=== PATIENT | female | born 1975 | race Caucasian/White ===

== ENCOUNTER 2022-12-04 16:38 | Inpatient (IN) | payer SELFPAY ==
[2022-12-04 16:50] VITALS: BP 230/132; PULSE 87; RESP 16; TEMP 36.8; O2SAT 98
--- NOTE | 2022-12-04 18:20 | EDS_ITS ---
HPI History of Present Illness Chief Complaint: Lower Extremity Injury Narrative Narrative: Patient presents with right lower extremity edema redness for about a week its progressively worse. No prior DVT. No DVT or PE risk factors. No fevers. She denies any injury. [facility] History no medical history Allergy/AdvReac Type Severity Reaction Status Date / Time ketorolac [From Toradol] Allergy Mild PT UNSURE Verified 12/04/22 16:57 OF REACTION tramadol Allergy Mild PT UNSURE Verified 12/04/22 16:57 OF REACTION Family History no significant family his Surgical History no surgical history Social History Smoking Status: Heavy Smoker (>10/day) ROS ROS ED ROS Narrative Past medical history: She has no medical problems but she also does not see a doctor. Medications: Reviewed Social history: Noncontributory Review of systems: All systems negative except as indicated General: No fever Eyes: No visual changes ENT: No upper airway congestion, normal voice Neck: No neck pain Cardiovascular: No chest pain Respiratory: No shortness of breath or cough Gastrointestinal: No abdominal pain, nausea vomiting or diarrhea Genitourinary: No dysuria Musculoskeletal: Lower extremity edema and redness as in HPI Skin: No other rash Neurological: No memory loss, confusion or any focal weakness Psych: No recent behavioral changes EXAM Physical Exam Narrative Exam Narrative: Physical exam General: Appears somewhat uncomfortable Head: Normocephalic, Atraumatic Eyes: Conjunctiva not pale ENT: Moist mucous membranes Neck: Supple, Nontender, No lymphadenopathy Cardiovascular: Regular rate, Regular rhythm Respiratory: No distress, CTA bilaterally Abdomen: Soft, Nontender, Nondistended Back: Nontender, Normal Inspection. Negative for: CVA tenderness Extremities: Lower extremity edema, there is erythema and calor past the knee into her distal thigh region. Skin: Normal color, No rash Neurological: Alert, Normal Strength, Normal Sensation Psychological: Normal affect Const Vital Signs: 12/04/22 16:50 12/04/22 18:22 Temperature 98.3 F Temperature Source Temporal Pulse Rate 87 Respiratory Rate 16 Blood Pressure 230/132 H 198/108 H Blood Pressure Mean 164 138 Pulse Ox 98 Oxygen Delivery Method Room Air MDM MDM MDM Narrative Medical decision making narrative: Patient has right lower extremity cellulitis with leukocytosis. I cannot rule out a DVT at this time since I do not have ultrasound available at this hour. Therefore I gave her Lovenox. Because I am admitting her for cellulitis and leukocytosis and then giving her Lovenox I do not believe a D-dimer is needed. She had no injury I do not believe an x-ray of the leg is needed. There is no signs or symptoms of necrotizing fasciitis. She had initially hypertension which somewhat improved with analgesics. This will have to also be evaluated in patient. Lab Data Labs: Laboratory Results - last 24 hr 12/04/22 18:37 WBC 14.9 H RBC 4.68 Hgb 14.2 Hct 44.8 MCV 95.7 MCH 30.3 MCHC 31.7 L RDW Std Deviation 44.9 H RDW Coeff of Efrain 12.8 Plt Count 260 MPV 10.7 Immature Gran % (Auto) 0.400 Neut % (Auto) 75.2 H Lymph % (Auto) 16.0 L [place] % (Auto) 7.5 Eos % (Auto) 0.4 Baso % (Auto) 0.5 Absolute Neuts (auto) 11.2 H Absolute Lymphs (auto) 2.38 Nucleated RBC % 0 Sodium 140 Potassium 3.4 L Chloride 107 Carbon Dioxide 29.0 Anion Gap 4 L BUN 13 Creatinine 0.89 Est GFR (MDRD) Af Amer 87 Est GFR (MDRD) Non-Af 72 BUN/Creatinine Ratio 14.7 Glucose 104 Calcium 9.3 Total Bilirubin 0.60 AST 16 ALT 36 Alkaline Phosphatase 94 Total Protein 8.0 Albumin 3.8 Globulin 4.2 Albumin/Globulin Ratio 0.9 Discharge Plan Triage Chief Complaint: Lower Extremity Injury ED Provider: Zeeshan Castro Dx/Rx/DC Orders Clinical Impression: Acute leg pain, Cellulitis, Hypertension Primary Care Provider: [facility] Doctor,Out of Referrals: [facility] Doctor,Out of [Primary Care Provider] - Disposition Disposition: [facility]
[2022-12-04 18:22] VITALS: BP 198/108
[2022-12-04] MEDS: Morphine 4 MG/ML Syringe IV (18:35)
[2022-12-04] MEDS: Ondansetron 4 MG/2 ML Vial IV (18:35)
[2022-12-04 18:42] LABS: Absolute Lymphocyte Count 2.38 X10^3/uL (0.83-4.51); Absolute Neutrophil Count 11.2 X10^3/uL (2.0-7.7); Basophil# 0.07 X10^3/uL; Basophil% 0.5 % (0-1); Eosinophil# 0.06 X10^3/uL; Eosinophils% 0.4 % (0-5); Hematocrit 44.8 % (37-47); Hemoglobin 14.2 g/dL (12.0-15.0); Lymphocyte # 2.38 X10^3/ul (0.83-4.51); Mean Corp Hgb Conc 31.7 g/dL (32-36); Mean Corpuscular Hgb 30.3 pg (27.0-32.0); Mean Corpuscular Volume 95.7 fL (81-99); Mean Platelet Vol. 10.7 fl (6.2-12.0); Monocyte# 1.12 X10^3/uL; Monocyte% 7.5 % (0-10); NRBC Flagged by Analyzer 0 % (0-5); Neutrophil # 11.23 X10^3/uL (2.7-7.7); Neutrophil % 75.2 % (47-70); Platelet Count 260 K/mm3 (150-450); RBC Distribution Width CV 12.8 % (11.6-14.6); RBC Distribution Width SD 44.9 fl (35.1-43.9); Red Blood Count 4.68 M/mm3 (4.2-5.4); White Blood Count 14.9 K/mm3 (4.4-11.0)
[2022-12-04] MEDS: Clindamycin 600 MG/50 ML BAG 100 MG IV (19:02)
[2022-12-04 19:03] LABS: ALB/GLOB Ratio 0.9 RATIO (0.9-2.4); AST(SGOT) 16 U/L (15-37); Alanine Aminotransfer ALT/SGPT 36 U/L (13-56); Albumin, Serum 3.8 g/dL (3.2-5.0); Alkaline Phosphatase 94 U/L (45-117); Anion Gap 4 (5-15); BUN 13 mg/dL (7-18); BUN/Creat Ratio 14.7 RATIO (10-20); Calcium,Total 9.3 mg/dL (8.5-10.1); Chloride 107 mmol/L (98-107); Creatinine, Serum 0.89 mg/dL (0.55-1.02); EST Glomerular Filtration Rate 72 mL/min (>60); Est Glom Filt Rate - Afr Amer 87 mL/min (>60); Globulin 4.2 g/dL (2.2-4.2); Glucose 104 mg/dL (74-106); Potassium 3.4 mmol/L (3.5-5.1); Sodium Level 140 mmol/L (136-145)
[2022-12-04] MEDS: HYDROmorphone 0.5 MG/0.5 ML SYRINGE IV (19:19)
[2022-12-04 19:26] VITALS: BMI 30.7
[2022-12-04 19:32] VITALS: BP 159/103; PULSE 85; RESP 15; TEMP 37.3; O2SAT 97
--- NOTE | 2022-12-04 19:52 | VDLE_ITS ---
Reason For Study: RLE PAIN RIGHT GSV is normal. CFV is compressible, spontaneous, phasic, competent and demonstrates normal augmentation. FV is compressible, spontaneous, phasic, competent and demonstrates normal augmentation. PTV is compressible. RT PerV is compressible. Unable to ASSESS POP V OR T/P TRUNK despite many efforts due to swelling and pain. Procedure This is a venous duplex using B-mode, color flow and spectral Doppler. Exam performed portable in patient room. The study was technically difficult. A preliminary report was called and/or faxed to [facility]. DR. Mcneil was notified of study. VL/Venous Duplex US - Kee Extrem Interpretation Summary The right common femoral vein, femoral vein, posterior tibial vein, and peronea l vein are patent and compressible, with no evidence of deep vein thrombosis. The right common femora l vein and femoral vein are competent. The right great saphenous vein appears patent and compressi ble segmentally. The right popliteal vein and tibio-peroneal trunk could not be visualized due to sw elling and pain inhibition. Clinical correlation is advised. Recommend an alternative imaging m odality if clinically warranted. Ordering Physician: Nadege Louis Referring Physician: OTD Performed By: Karis Mistry, PHIL, RVT
--- NOTE | 2022-12-04 19:55 | PCM.HP.STD ---
HPI - General General Date of Admission: 12/04/22 Date of Service: 12/04/22 HPI Narrative KATIE SEQUEIRA, is a 47 F with a PMH as outlined who presents via the ED with a complaint of RLE pain and swelling for about a week. She works for the [employer] and [place] [facility] [place] [facility]. HEr most recent travel was for about 4 hours. She started having some cramping of her right calf a week ago. She thought maybe she had pulled a muscle, but the symptoms persisted and he started having extensive swelling of her right lower extremity. Swelling extended to up above the knee to the mid thigh region. She notices that her leg was also very tense and very painful so she came into the ED. She denied any chest pain though she says she also was short of breath because she smoked and had not noticed any worsening of it. She never had any blood clot in her leg or her lungs. Review of systems otherwise negative. Vitals in the ED were BP of 198/108 with temperature of 98.3 Fahrenheit and respirate rate of 16. Showed saturating 98% on room air. CBC showed WBC of 14.9 with hemoglobin of 14.2 and platelets of 260. Chemistry was significant for potassium of 3.4. Duplex could not be done in the ED this evening. She has been admitted to be managed for presumptive DVT of the right lower extremity as well as markedly elevated BP, likely potentiated by pain. [facility] Medical History no medical history Home Medications NK 12/04/22 [History Last Taken Unknown] Allergy/AdvReac Type Severity Reaction Status Date / Time ketorolac [From Toradol] Allergy Mild PT UNSURE Verified 12/04/22 16:57 OF REACTION tramadol Allergy Mild PT UNSURE Verified 12/04/22 16:57 OF REACTION Family History no significant family his Surgical History no surgical history Social History Smoking Status: Heavy Smoker (>10/day) ROS Constitutional Constitutional: Denies anorexia, change in weight, chills, fatigue, fever(s), malaise or weakness Eyes Eyes: Denies change in vision ENT HEENT: Denies dysphagia, headache(s), sore throat or throat swelling Cardiovascular Cardiovascular: Denies chest pain, edema, orthopnea, palpitations, paroxysmal nocturnal dyspnea or syncope Respiratory/Chest Respiratory/Chest: Reports shortness of breath at rest, shortness of breath with exertion and wheezing; Denies cough Gastrointestinal Gastrointestinal: Denies abdominal pain, constipation, melena or vomiting Genitourinary Genitourinary: Denies dysuria Musculoskeletal Musculoskeletal: Reports extremity pain and limited range of motion; Denies back pain, joint stiffness, joint swelling, muscle weakness or neck pain Neurologic Neurologic: Denies confusion, dizziness, focal weakness, headache(s), numbness or seizures Psychiatric Psychiatric: Denies anxiety or depression Hematologic/Lymphatic Hematologic/Lymphatic: Denies anemia Vital Signs Vital Signs Vital Signs: 12/04/22 16:50 12/04/22 18:22 Temperature 98.3 F Temperature Source Temporal Pulse Rate 87 Respiratory Rate 16 Blood Pressure 230/132 H 198/108 H Blood Pressure Mean 164 138 Pulse Ox 98 Oxygen Delivery Method Room Air Weight Weight: 195 lb 12.328 oz Body Mass Index (BMI) 30.7 Physical Exam Const alert and oriented x3 Constitutional Narrative: in moderate distress due to pain General Appearance: cooperative and well developed HEENT normocephalic, head/scalp atraumatic, moist oral mucous membranes and oropharynx normal Eyes PERRL and EOMs intact bilaterally Neck no lymphadenopathy, supple and no JVD Lymph Lymphatic: no lymphadenopathy noted and no lymphedema noted Resp normal respiratory effort, normal air movement and clear to auscultation bilaterally Cardio regular rate, regular rhythm, S1 normal heart sound, S2 normal heart sound and no murmurs GI normal to inspection, nondistended, normoactive bowel sounds, soft to palpation, non-tender and non-distended Extremity normal capillary refill Extremity Narrative: RLE markedly swollen from foot to mid thigh; RLE swelling is tense, and severely tender to touch. Mild erythema. No differential warmth. DP and PT pulse on RLE is strong and palpable Skin Skin Narrative: as under extremity Neuro CN's II-XII intact bilaterally, no focal motor deficits, no sensory deficits noted and deep tendon reflexes 2+ bilaterally Psych thought process normal, cooperative and affect normal Appearance: appropriate Results Lab / Micro Data 12/04/22 18:37 12/04/22 18:37 Labs: Laboratory Results - last 24 hr 12/04/22 18:37: WBC 14.9 H, RBC 4.68, Hgb 14.2, Hct 44.8, MCV 95.7, MCH 30.3, MCHC 31.7 L, RDW Std Deviation 44.9 H, RDW Coeff of Efrain 12.8, Plt Count 260, MPV 10.7, Immature Gran % (Auto) 0.400, Neut % (Auto) 75.2 H, Lymph % (Auto) 16.0 L, [place] % (Auto) 7.5, Eos % (Auto) 0.4, Baso % (Auto) 0.5, Absolute Neuts (auto) 11.2 H, Absolute Lymphs (auto) 2.38, Nucleated RBC % 0, Sodium 140, Potassium 3.4 L, Chloride 107, Carbon Dioxide 29.0, Anion Gap 4 L, BUN 13, Creatinine 0.89, Est GFR (MDRD) Af Amer 87, Est GFR (MDRD) Non-Af 72, BUN/Creatinine Ratio 14.7, Glucose 104, Calcium 9.3, Total Bilirubin 0.60, AST 16, ALT 36, Alkaline Phosphatase 94, Total Protein 8.0, Albumin 3.8, Globulin 4.2, Albumin/Globulin Ratio 0.9 Assessment & Plan Assessment/Plan (1) Acute leg pain: (2) DVT (deep venous thrombosis): PLAN: Plan #PResumptive DVT of RLE Index of suspicion is very high for DVT of the right lower extremity as patient has a history of traveling from [facility] [place] [facility] to attend fairs. Her most recent travel was about 4 hours. Cannot get duplex of the right lower extremity at this time in the ED. We will start treatment for presumptive DVT with subcu Lovenox 90 mg twice daily. To get duplex of the RLE tomorrow to confirm DVT PT/OT consulted. PO Tylenol, IV dilaudid and PO oxycodone prn for pain #Elevated blood pressure Not a known hypertensive. Blood pressure was markedly elevated in the 230s systolic when she came in and was down to 198/108 at time I saw her. This is likely aggravated by pain. Will place on IV hydralazine as needed. I believe that once her pain is improved her blood pressure will improve. If she still remains hypertensive then we will consider starting oral BP meds. #Nicotine dependence: Smokes at least 1 to 1.5 packs daily. Counseled to quit. Nicotine patch 21 mg daily. DVT prophylaxis: Already being treated for presumptive DVT. CODE STATUS: Full code Patient counseled extensively about different types of CODE STATUS including full code, DNR CCA and DNR CCA. Patient elects to be full code; she says she is not ready to as she has to care for her father who is elderly. Total [id number] time 16 minutes. Charges/Coding Visit Charges Inpatient E&M: 35611 Init Hosp L3 Procedures Hospitalists Procedures: 74305 Advncd Care Plan 30 Min
--- NOTE | 2022-12-04 20:04 | ED.RN ---
BP 159/103. DR CHO MADE AWARE. NO NEW ORDERS RCVD AT THIS TIME BP HAS IMPROVED SINCE ARRIVAL
[2022-12-04] MEDS: Enoxaparin 120 MG/0.8 ML Syringe SC (20:14)
[2022-12-04 20:41] VITALS: BMI 29.8
[2022-12-04] MEDS: 0.9% Normal Saline (1000mL) 1,000 ML 100 ML IV (20:52)
[2022-12-04] MEDS: Acetaminophen 325 MG Tablet 650 MG PO (21:06)
[2022-12-04] MEDS: oxyCODONE 5 MG Tablet PO (21:07)
[2022-12-04 21:08] VITALS: BP 160/105; PULSE 76; RESP 16; TEMP 36.4; O2SAT 92
[2022-12-04] MEDS: HYDROmorphone 1 MG/ML Syringe IV (22:24)
[2022-12-05] MEDS: Ondansetron 4 MG/2 ML Vial IV ×2 (01:41→12:38)
[2022-12-05] MEDS: HYDROmorphone 1 MG/ML Syringe IV ×5 (03:01→22:26)
[2022-12-05 03:06] VITALS: BP 150/62; PULSE 62; RESP 17; TEMP 36.7; O2SAT 98
[2022-12-05] MEDS: oxyCODONE 5 MG Tablet PO ×2 (05:24→15:28)
[2022-12-05] MEDS: Acetaminophen 325 MG Tablet 650 MG PO ×2 (05:24→15:27)
--- NOTE | 2022-12-05 07:25 | PN.HOSP_ITS ---
Objective Data Objective Data Vital Signs: Vital Signs Temp Pulse Resp BP Pulse Ox O2 Del Method 98.1 F 62 17 150/62 H 98 Room Air 12/05/22 03:06 12/05/22 03:06 12/05/22 03:06 12/05/22 03:06 12/05/22 03:06 12/05/22 03:06 Oxygen Delivery Method Room Air Weight: 190 lb 11.198 oz Body Mass Index (BMI) 29.8 Intake & Output: Intake and Output for Last 24 Hours 12/03/22 12/04/22 12/05/22 23:59 23:59 23:59 Intake Total 50 / 50 2440 / 2440 Balance 50 / 50 2440 / 2440 Lab / Micro Data 12/05/22 08:05 12/05/22 05:27 Labs: Laboratory Results - last 24 hr 12/04/22 18:37: WBC 14.9 H, RBC 4.68, Hgb 14.2, Hct 44.8, MCV 95.7, MCH 30.3, MCHC 31.7 L, RDW Std Deviation 44.9 H, RDW Coeff of Efrain 12.8, Plt Count 260, MPV 10.7, Immature Gran % (Auto) 0.400, Neut % (Auto) 75.2 H, Lymph % (Auto) 16.0 L, [place] % (Auto) 7.5, Eos % (Auto) 0.4, Baso % (Auto) 0.5, Absolute Neuts (auto) 11.2 H, Absolute Lymphs (auto) 2.38, Nucleated RBC % 0, Sodium 140, Potassium 3.4 L, Chloride 107, Carbon Dioxide 29.0, Anion Gap 4 L, BUN 13, Creatinine 0.89, Est GFR (MDRD) Af Amer 87, Est GFR (MDRD) Non-Af 72, BUN/Creatinine Ratio 14.7, Glucose 104, Calcium 9.3, Total Bilirubin 0.60, AST 16, ALT 36, Alkaline Phosphatase 94, Total Protein 8.0, Albumin 3.8, Globulin 4.2, Albumin/Globulin Ratio 0.9 Physical Exam Narrative Patient is states that she frequently travels [address] is about more than 5 hours. Right lower extremity is very swollen and tender. No fever. Physical exam General: Alert, Oriented x3, Cooperative HEENT: Atraumatic, PERRLA, EOMI, Normocephalic Oral: Oral mucosa moist. No Gingival or Mucosal Lesions/ Ulcerations Neck: Supple, No JVD, Negative Carotid Bruits Lungs: Air entry diminished in bilateral lung bases. No crepitation/rhonchi Cardiovascular: Regular rate, Regular Rhythm, Normal S1, Normal S2, No murmurs Abdomen: Bowel Sounds Present, Soft, Non Tender, Non-Distended : No renal angle tenderness. No suprapubic tenderness. Extremities: RLE markedly swollen from mid thigh to foot with pedal edema. Tender tense mild mentals. PT and DPA of RLE are palpable. Nail capillary Refill Less than 3 Seconds Skin: Mild erythema in right lower leg. Does not seem cellulitis. Musculoskeletal: No Tenderness to Palpation of Joints or Extremities Neurological: Cranial nerves II-XII grossly intact, DTR 2+/4. No acute focal neurological deficit. Psych/Mental Status: Normal Affect, Appropriate. Assessment & Plan Assessment/Plan (1) Acute leg pain: QUALIFIERS: Laterality: right Qualified Code(s): M79.604 - Pain in right leg (2) DVT (deep venous thrombosis): QUALIFIERS: DVT location: lower extremity Chronicity: acute Laterality: right PLAN: Plan 47-year-old female admitted for extensive right lower extremity pain, swelling along with for about 1 week. Symptoms persisted and progressed from knee to mid thigh region. No chest pain or shortness of breath she is also frequent traveling from [facility] to other related to work. #Presumptive DVT of RLE * Index of suspicion is very high for DVT of the right lower extremity as patient has a history of traveling [place] [facility] [place] [facility] to attend fairs. Her most recent travel was about 4 hours. * Cannot get duplex of the right lower extremity at this time in the ED or on Tuesday therefore scheduled for tomorrow.the patient is empirically started on Lovenox 90 mg twice daily for presumptive DVT * PT/OT consulted. * PO Tylenol, IV dilaudid and PO oxycodone prn for pain #Elevated blood pressure * Not a known hypertensive. Blood pressure was markedly elevated in the 230s systolic when she came in and was down to 198/108 * Most recent blood pressure 151/94. * This is likely aggravated by pain. On lisinopril 10 mg daily and hydralazine IV as needed. * #Nicotine dependence: Smokes at least 1 to 1.5 packs daily. Counseled to quit. Nicotine patch 21 mg daily. DVT prophylaxis: Already being treated for presumptive DVT. CODE STATUS: Full code * Patient counseled extensively about different types of CODE STATUS including full code, DNR CCA and DNR CCA. Patient elects to be full code; she says she is not ready to as she has to care for her father who is elderly. Charges/Coding Visit Charges Inpatient E&M: 34243 Subs Hosp L2
[2022-12-05 07:51] LABS: Anion Gap 6 (5-15); BUN 13 mg/dL (7-18); BUN/Creat Ratio 18.6 RATIO (10-20); Calcium,Total 8.5 mg/dL (8.5-10.1); Chloride 106 mmol/L (98-107); EST Glomerular Filtration Rate 95 mL/min (>60); Est Glom Filt Rate - Afr Amer 115 mL/min (>60); Estimated Creatinine Clearance 94.54 ml/min; Glucose 139 mg/dL (74-106); Potassium 4.9 mmol/L (3.5-5.1); Sodium Level 136 mmol/L (136-145)
[2022-12-05 08:18] LABS: Absolute Lymphocyte Count 2.05 X10^3/uL (0.83-4.51); Absolute Neutrophil Count 8.3 X10^3/uL (2.0-7.7); Basophil# 0.06 X10^3/uL; Basophil% 0.5 % (0-1); Eosinophil# 0.03 X10^3/uL; Eosinophils% 0.3 % (0-5); Hematocrit 40.2 % (37-47); Hemoglobin 12.4 g/dL (12.0-15.0); Lymphocyte # 2.05 X10^3/ul (0.83-4.51); Lymphocyte % 17.6 % (19-41); Mean Corp Hgb Conc 30.8 g/dL (32-36); Mean Corpuscular Hgb 30.5 pg (27.0-32.0); Mean Platelet Vol. 11.4 fl (6.2-12.0); Monocyte# 1.16 X10^3/uL; Monocyte% 9.9 % (0-10); NRBC Flagged by Analyzer 0 % (0-5); Neutrophil # 8.33 X10^3/uL (2.7-7.7); Neutrophil % 71.3 % (47-70); Platelet Count 215 K/mm3 (150-450); RBC Distribution Width CV 12.7 % (11.6-14.6); RBC Distribution Width SD 46.2 fl (35.1-43.9); Red Blood Count 4.06 M/mm3 (4.2-5.4); White Blood Count 11.7 K/mm3 (4.4-11.0)
[2022-12-05 08:28] LABS: International Normalized Ratio 1.1; Prothrombin Time (Protime)PT. 14.5 SECONDS (11.7-14.9)
[2022-12-05] MEDS: Enoxaparin 100 MG/ML Syringe 90 MG SC ×2 (08:35→22:21)
[2022-12-05 09:00] VITALS: BP 151/94; PULSE 67; PULSE 80; RESP 18; TEMP 36.7; O2SAT 94
[2022-12-05 14:06] VITALS: PULSE 68
[2022-12-05 14:11] VITALS: BP 149/54; PULSE 68; RESP 18; TEMP 36.7; O2SAT 98
--- NOTE | 2022-12-05 14:20 | NURSING ---
pt had numerous $20 bills folded in half on dinner tray, this nurse handed them to pt as I was giveng her pain meds and asked her if we could lock them in the [facility] safe, she refused to allow staff to lock them up and insisted on placing them in her back pack style bag
[2022-12-05] MEDS: Ibuprofen 600 MG Tablet PO ×2 (15:27→23:55)
--- NOTE | 2022-12-05 18:46 | CT_ITS ---
STUDY: CTA CHEST REASON FOR EXAM: Female, 47 years old. shortness of breath, suspicious of PE TECHNIQUE: The examination was performed with the intravenous administration of 100 cc of IV Isovue 300 contrast material. Post-processing of the angiographic images was performed, with axial imaging and 3D reconstruction. MIPS images were obtained. Individualized dose optimization techniques were used for this CT. COMPARISON: None. FINDINGS: Normal enhancement of the main pulmonary artery and right and left pulmonary arteries. Normal enhancement of the bilateral peripheral pulmonary arteries. There is no demonstrated pulmonary embolism. Retroesophageal] cephalic artery. There is no demonstrated aortic dissection. Normal heart and pericardium with no evidence for calcifications of the coronary arteries. Normal mediastinum. Normal hilar regions. Normal visualized trachea and bronchi. The lungs are well expanded. Normal pulmonary parenchyma. Normal pleura. Normal chest wall structures. There are degenerative changes of thoracic spine. Normal visualized upper abdomen. CT/CTA Chest W/WO Contrast IMPRESSION: (NOT LISTED IN ORDER OF SIGNIFICANCE) No demonstrated pulmonary embolism or arterial dissection. Electronically Signed: Bruce oLpez MD at 20:39 EDT ,
--- NOTE | 2022-12-05 18:56 | CT_ITS ---
EXAM: CT RIGHT LOWER EXTREMITY WITHOUT INTRAVENOUS CONTRAST CLINICAL INDICATION: edema -- rt lower extremity entire extremity TECHNIQUE: Helically acquired images were obtained of the right lower extremity without intravenous contrast. 2-D reformats were performed by the technologist. This CT exam was performed using one or more of the following dose reduction techniques: automated exposure control, adjustment of the mA and/or kV according to patient size, and/or use of iterative reconstruction technique. RADIATION DOSE: CTDIvol = 16.36 mGy, DLP = 1453.06 mGy-cm COMPARISON: No relevant prior studies available. FINDINGS: BONES/JOINTS: Right knee joint effusion. Intramuscular hematoma of the right medial gastrocnemius muscle. The hematoma measures 63 x 40 x 161 mm. No acute fracture. No subluxation. Normal alignment. No sclerotic or destructive changes. SOFT TISSUES: See above. LYMPH NODES: Prominent inguinal lymph nodes. CT/Extremity Lower without Contra IMPRESSION: 1. Right knee joint effusion. Intramuscular hematoma of the right medial gastrocnemius muscle. The hematoma measures 63 x 40 x 161 mm. 2. Prominent inguinal lymph nodes. Electronically Signed: Bruce Lopez MD at 20:36 EDT ,
[2022-12-05] MEDS: 0.9% Saline Lock 10 ML Syringe IV ×2 (19:03→22:27)
[2022-12-05 22:16] VITALS: BP 176/83; PULSE 74; RESP 18; TEMP 36.9; O2SAT 97
[2022-12-05] MEDS: Senna Tablet 2 TABLET PO (22:21)
[2022-12-06 01:52] VITALS: BP 131/74; PULSE 61; RESP 17; TEMP 36.9; O2SAT 94
[2022-12-06] MEDS: Acetaminophen 325 MG Tablet 650 MG PO ×2 (01:55→15:08)
[2022-12-06] MEDS: oxyCODONE 5 MG Tablet PO ×4 (01:56→20:09)
[2022-12-06] MEDS: Ibuprofen 600 MG Tablet PO ×3 (05:58→19:00)
[2022-12-06] MEDS: 0.9% Saline Lock 10 ML Syringe IV (06:50)
[2022-12-06] MEDS: HYDROmorphone 1 MG/ML Syringe IV (06:51)
[2022-12-06 08:06] VITALS: BP 147/89; PULSE 55; RESP 18; TEMP 37.2; O2SAT 95
[2022-12-06 08:31] LABS: Absolute Lymphocyte Count 2.01 X10^3/uL (0.83-4.51); Absolute Neutrophil Count 7.8 X10^3/uL (2.0-7.7); Basophil# 0.05 X10^3/uL; Basophil% 0.5 % (0-1); Eosinophil# 0.16 X10^3/uL; Eosinophils% 1.4 % (0-5); Hematocrit 42.4 % (37-47); Hemoglobin 13.4 g/dL (12.0-15.0); Lymphocyte # 2.01 X10^3/ul (0.83-4.51); Lymphocyte % 18.2 % (19-41); Mean Corp Hgb Conc 31.6 g/dL (32-36); Mean Corpuscular Hgb 30.2 pg (27.0-32.0); Mean Corpuscular Volume 95.7 fL (81-99); Mean Platelet Vol. 11.4 fl (6.2-12.0); NRBC Flagged by Analyzer 0 % (0-5); Neutrophil # 7.81 X10^3/uL (2.7-7.7); Neutrophil % 70.5 % (47-70); Platelet Count 248 K/mm3 (150-450); RBC Distribution Width CV 12.5 % (11.6-14.6); RBC Distribution Width SD 44.2 fl (35.1-43.9); Red Blood Count 4.43 M/mm3 (4.2-5.4); White Blood Count 11.1 K/mm3 (4.4-11.0)
[2022-12-06 09:10] LABS: Anion Gap 1 (5-15); BUN 12 mg/dL (7-18); BUN/Creat Ratio 16.3 RATIO (10-20); Calcium,Total 9.6 mg/dL (8.5-10.1); Chloride 100 mmol/L (98-107); Creatinine, Serum 0.74 mg/dL (0.55-1.02); EST Glomerular Filtration Rate 89 mL/min (>60); Est Glom Filt Rate - Afr Amer 108 mL/min (>60); Estimated Creatinine Clearance 89.43 ml/min; Glucose 131 mg/dL (74-106); Potassium 3.7 mmol/L (3.5-5.1); Sodium Level 137 mmol/L (136-145)
[2022-12-06] MEDS: Senna Tablet 2 TABLET PO (10:12)
--- NOTE | 2022-12-06 10:20 | PCM.PN.HOSP ---
Subjective Subjective No issues overnight, continue with right lower extremity swelling Objective Data Objective Data Vital Signs: Vital Signs Temp Pulse Resp BP Pulse Ox O2 Del Method 98.9 F 55 L 18 147/89 H 95 Room Air 12/06/22 08:06 12/06/22 08:06 12/06/22 08:06 12/06/22 08:06 12/06/22 08:06 12/06/22 08:11 Oxygen Delivery Method Room Air Weight: 190 lb 11.198 oz Body Mass Index (BMI) 29.8 Intake & Output: Intake and Output for Last 24 Hours 12/05/22 12/06/22 12/07/22 03:59 03:59 03:59 Intake Total 490 / 490 2500 / 2500 Output Total 200 / 200 Balance 490 / 490 2300 / 2300 Lab / Micro Data 12/06/22 08:05 12/06/22 08:05 Labs: Laboratory Results - last 24 hr 12/06/22 08:05: WBC 11.1 H, RBC 4.43, Hgb 13.4, Hct 42.4, MCV 95.7, MCH 30.2, MCHC 31.6 L, RDW Std Deviation 44.2 H, RDW Coeff of Efrain 12.5, Plt Count 248, MPV 11.4, Immature Gran % (Auto) 0.400, Neut % (Auto) 70.5 H, Lymph % (Auto) 18.2 L, [place] % (Auto) 9.0, Eos % (Auto) 1.4, Baso % (Auto) 0.5, Absolute Neuts (auto) 7.8 H, Absolute Lymphs (auto) 2.01, Nucleated RBC % 0, Sodium 137, Potassium 3.7, Chloride 100, Carbon Dioxide 36.0 H, Anion Gap 1 L, BUN 12, Creatinine 0.74, Estim Creat Clear Calc 89.43, Est GFR (MDRD) Af Amer 108, Est GFR (MDRD) Non-Af 89, BUN/Creatinine Ratio 16.3, Glucose 131 H, Calcium 9.6 Radiography Diagnostic Testing: Radiology Impression Chest CTA 12/05/22 18:46 IMPRESSION: (NOT LISTED IN ORDER OF SIGNIFICANCE) No demonstrated pulmonary embolism or arterial dissection. Electronically Signed: Bruce Lopez MD at 20:39 EDT , Lower Extremity CT 12/05/22 18:56 IMPRESSION: 1. Right knee joint effusion. Intramuscular hematoma of the right medial gastrocnemius muscle. The hematoma measures 63 x 40 x 161 mm. 2. Prominent inguinal lymph nodes. Electronically Signed: Bruce Lopez MD at 20:36 EDT , Physical Exam Narrative General: Alert, Oriented x3, Cooperative, No apparent distress HEENT: Atraumatic, PERRLA, EOMI, Normocephalic Oral: Moist Mucosa Neck: Supple, No JVD Lungs: Diminished, Normal air movement, No rhonchi, No wheeze, No rales Cardiovascular: Regular rate, Regular Rhythm, Normal S1, Normal S2, No murmurs Abdomen: Soft, Non Tender, Non-Distended, No Hepato-splenomegaly Extremities: Right lower extremity edema, sensation intact she does have limited dorsiflexion of the ankle due to pain but she was resting comfortably with her eyes closed when I came in, Capillary Refill Less than 3 Seconds Skin: No rashes, No breakdown Musculoskeletal: No Tenderness to Palpation of Joints or Extremities Neurological: Cranial nerves II-XII grossly intact, Motor Exam 5/5 strength throughout, Sensory exam intact to light touch and pain Psych/Mental Status: Normal Affect, Appropriate Assessment & Plan Assessment/Plan (1) Acute leg pain: QUALIFIERS: Laterality: right Qualified Code(s): M79.604 - Pain in right leg (2) DVT (deep venous thrombosis): QUALIFIERS: DVT location: lower extremity Chronicity: acute Laterality: right PLAN: Plan 1. Right lower extremity gastrocnemius hematoma ? She states that she does fall on occasion at work but does not recall any significant direct trauma to the leg ? She was on therapeutic Lovenox however this has been discontinued as the CT scan was read as a hematoma ? Venous duplex was negative for DVT ? We will consult radiology for possible drainage if not we will have to monitor for progression to compartment syndrome 2. HTN ? When she came in systolics were in the 190s and she was started on lisinopril, she travels 12 months out of the year so she does not have a PCP so she does not have any medical history ? We will continue to monitor and make adjustments as necessary 3. Nicotine dependence: Smokes at least 1 to 1.5 packs daily. Counseled to quit. Nicotine patch 21 mg daily. DVT: Ambulation Charges/Coding Visit Charges Inpatient E&M: 14996 Subs Hosp L2
--- NOTE | 2022-12-06 13:20 | CASEMGMT ---
AFRICA PROCTOR Assessment: Face to Face with pt for initial transition planning/care coordination assessment. AFRICA PROCTOR introduced self and role at [facility], pt voices understanding and consents to assessment. Pt is A/O x4 and answers all questions appropriately at this time. Pt lying in bed in no distress. Care providers, pharmacy, and demographics verified/updated. Admitting Dx: cellulitis PCP:Pt denies Specialists:Pt denies Preferred Pharmacy:[facility] Retail Insurance: Self Pay Prescription Benefit: no LNOK: Joe Barrios, emergency contact only. Pt states do not call him unless I am dying in the hospital. Living Arrangements: Pt would not answer who she stays with. She states that is personal. She states she stays in motels at all times. She denies any concerns with this and states she is able to manage ADL's independently. Transportation: Pt drives self and denies concerns with transportation. DME/HHC/SNF: Pt has a w/c, denies hx of HHC of SNF stays. Pt states no concerns with going home at time of dc. She states she would have one person who could assist her if she had wound care. She states she will be in this area until Tuesday morning. 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 Pt states that if she needs to have an I&D to her leg, she needs to be put under as she has extreme anxiety. Updated pt nurse of this. Pt states no further concerns/needs. CM to follow. Advised pt to ask CM if any further question/concerns/needs arise, voices understanding. Pt Goal: Home Plan: Home, will follow for wound care needs
--- NOTE | 2022-12-06 15:01 | CASEMGMT ---
Social Work SW attempted to meet with pt to discuss self pay status. Pt painful and unable to talk with SW. Nursing updated. Per RNCM [place]. Pt is not eligible for community resources as she does not lives locally and will be leaving the area on Tuesday. Pt may qualify for the hospital medication assistance program upon discharge if needed. TAHIR Marks
[2022-12-06 16:33] VITALS: BP 159/100; PULSE 58; RESP 18; TEMP 36.2; O2SAT 95
--- NOTE | 2022-12-06 18:59 | NURSING ---
PT WAS NOTIFIED OF ALL THE REST RESULTS AND PLAN OF CARE. SHE IS ON THE PHONE WITH FAMILY MEMBERS AND STATING SHE DOES NOT KNOW WHAT IS GOING ON. SHE HAS HAD FAMILY MEMBERS CALLING IN FACILITY AND ASKING THE SAME QUESTIONS STATING THEY DO NOT KNOW WHAT IS GOING ON WITH HER.CHARGE NURSE INTO SEE PT.
[2022-12-06 23:45] VITALS: BP 158/86; PULSE 65; RESP 16; TEMP 36.8; O2SAT 95
[2022-12-07] MEDS: oxyCODONE 5 MG Tablet PO ×4 (00:12→21:56)
[2022-12-07] MEDS: Ibuprofen 600 MG Tablet PO ×4 (00:12→21:57)
[2022-12-07 06:30] VITALS: BP 155/90; PULSE 61; RESP 16; TEMP 36.9; O2SAT 95
[2022-12-07 06:49] LABS: Absolute Lymphocyte Count 2.48 X10^3/uL (0.83-4.51); Absolute Neutrophil Count 5.7 X10^3/uL (2.0-7.7); Basophil# 0.05 X10^3/uL; Basophil% 0.5 % (0-1); Eosinophil# 0.19 X10^3/uL; Hematocrit 41.9 % (37-47); Lymphocyte # 2.48 X10^3/ul (0.83-4.51); Lymphocyte % 26.1 % (19-41); Mean Corpuscular Hgb 30.2 pg (27.0-32.0); Mean Corpuscular Volume 97.4 fL (81-99); Mean Platelet Vol. 11.6 fl (6.2-12.0); Monocyte# 1.07 X10^3/uL; Monocyte% 11.3 % (0-10); NRBC Flagged by Analyzer 0 % (0-5); Neutrophil # 5.66 X10^3/uL (2.7-7.7); Neutrophil % 59.7 % (47-70); Platelet Count 232 K/mm3 (150-450); RBC Distribution Width CV 12.4 % (11.6-14.6); RBC Distribution Width SD 44.8 fl (35.1-43.9); White Blood Count 9.5 K/mm3 (4.4-11.0)
[2022-12-07 07:11] LABS: Anion Gap 2 (5-15); BUN 12 mg/dL (7-18); BUN/Creat Ratio 17.6 RATIO (10-20); Calcium,Total 8.8 mg/dL (8.5-10.1); Chloride 103 mmol/L (98-107); Creatinine, Serum 0.68 mg/dL (0.55-1.02); EST Glomerular Filtration Rate 98 mL/min (>60); Est Glom Filt Rate - Afr Amer 118 mL/min (>60); Estimated Creatinine Clearance 97.32 ml/min; Glucose 119 mg/dL (74-106); Potassium 3.4 mmol/L (3.5-5.1); Sodium Level 138 mmol/L (136-145)
[2022-12-07 08:05] VITALS: O2SAT 95
[2022-12-07 09:00] VITALS: BP 218/88; PULSE 83; RESP 18; TEMP 36.5; O2SAT 97
--- NOTE | 2022-12-07 10:46 | PCM.CONS.GEN ---
Assessment & Plan Assessment/Plan (1) Effusion of right knee joint: (2) Hematoma of right lower leg: PLAN: Plan It is unusual the patient would sustain an intramuscular hematoma without having any injury and without being on any blood thinners. Therefore am ordering stat MRI of the right leg to see if there is an underlying tumor or structure that could be the source. At this point her compartments are soft and compressible although she does have significant pain she maintains palpable pedal pulses. HPI Consult Data Date of Consult: 12/07/22 HPI Narrative HPI Narrative: KATIE SEQUEIRA, is a 47 F who presents with over 1 week long presentation of pain and swelling in her right leg particularly the posterior medial calf. She presented to the ER on 12/04/2022, she was presumed to have DVT and was started on Lovenox. She subsequently had a CT scan demonstrating joint effusion of the knee and medial gastrocnemius intramuscular hematoma. she denies any injury to the area at the time however a few days ago she did fall in the front of her knee. She denies any prior injuries or surgeries to the right lower extremity. Denies any history of tumors she does not know her family history as she is an orphan. She is no fevers or chills or recent infections or malaise. [facility] Medical History no medical history Home Medications NK 12/04/22 [History Last Taken Unknown] Allergy/AdvReac Type Severity Reaction Status Date / Time tramadol Allergy Mild PT UNSURE Verified 12/04/22 16:57 OF REACTION Family History no significant family his Surgical History no surgical history Social History Smoking Status: Heavy Smoker (>10/day) Physical Exam Const alert, oriented x3 and no apparent distress Orientation / Consciousness: awake, oriented to person, oriented to place and oriented to time Extremity Extremity Narrative: Right lower extremity is swollen there is no erythema, he does have a joint effusion of the knee she is exquisitely tender to palpation although her compartments in her thigh posterior anterior and lateral leg are soft she is unwilling to move her toes or ankle she has palpable pedal pulses. There is no ecchymosis. She has brisk capillary refill. Lab / Micro Data 12/07/22 06:05 12/07/22 06:05 Labs: Laboratory Results - last 24 hr 12/07/22 06:05: WBC 9.5, RBC 4.30, Hgb 13.0, Hct 41.9, MCV 97.4, MCH 30.2, MCHC 31.0 L, RDW Std Deviation 44.8 H, RDW Coeff of Efrain 12.4, Plt Count 232, MPV 11.6, Immature Gran % (Auto) 0.400, Neut % (Auto) 59.7, Lymph % (Auto) 26.1, Drew % (Auto) 11.3 H, Eos % (Auto) 2.0, Baso % (Auto) 0.5, Absolute Neuts (auto) 5.7, Absolute Lymphs (auto) 2.48, Nucleated RBC % 0, Sodium 138, Potassium 3.4 L, Chloride 103, Carbon Dioxide 33.0 H, Anion Gap 2 L, BUN 12, Creatinine 0.68, Estim Creat Clear Calc 97.32, Est GFR (MDRD) Af Amer 118, Est GFR (MDRD) Non-Af 98, BUN/Creatinine Ratio 17.6, Glucose 119 H, Calcium 8.8 Radiology Impression Venous Doppler Study 12/04/22 19:52 Interpretation Summary The right common femoral vein, femoral vein, posterior tibial vein, and peroneal vein are patent and compressible, with no evidence of deep vein thrombosis. The right common femoral vein and femoral vein are competent. The right great saphenous vein appears patent and compressible segmentally. The right popliteal vein and tibio-peroneal trunk could not be visualized due to swelling and pain inhibition. Clinical correlation is advised. Recommend an alternative imaging modality if clinically warranted. Ordering Physician: Nadege Louis Referring Physician: OTD Performed By: Karis Mistry, PHIL, RVT
--- NOTE | 2022-12-07 10:55 | MRI_ITS ---
STUDY: MRI LOWER EXTREMITY RIGHT TIBIA/FIBULA WITH AND WITHOUT CONTRAST REASON FOR EXAM: Female, 47 years old. hematoma, mass, CALF PAIN TECHNIQUE: Standardized fat and water weighted pulse sequences were obtained in all 3 orthogonal planes, post contrast administration. IV CLARISCAN 17ML was administered for the contrast portion of the examination. COMPARISON: CT scan 12/05/2022 FINDINGS: Stable appearance of heterogeneous density located in the medial gastrocnemius with MRI characteristics of a hematoma. Greatest dimensions are approximately 4.2 x 7.3 x 13.0 cm. No definite evidence for active bleeding. Mild circumferential cutaneous edema. Otherwise normal anterior, lateral, and posterior calf compartments, with otherwise normal muscles, crural fascia and intermuscular septa. Normal appearance of the visualized bones and joints. There is no abnormal contrast enhancement. MRI/Lower Ext No Joint W/WO Cont IMPRESSION: Grossly stable appearance of the medial gastrocnemius intramuscular hematoma. Electronically Signed: Art Alamo MD at 17:07 EDT ,
[2022-12-07] MEDS: Senna Tablet 2 TABLET PO (11:17)
[2022-12-07] MEDS: Lisinopril 10 MG Tablet PO (11:17)
[2022-12-07] MEDS: Morphine 2 MG/ML Syringe IV ×3 (11:24→22:51)
[2022-12-07] MEDS: 0.9% Saline Lock 10 ML Syringe IV ×3 (11:30→22:52)
[2022-12-07] MEDS: Ondansetron 4 MG/2 ML Vial IV (11:30)
--- NOTE | 2022-12-07 11:42 | PCM.PN.HOSP ---
Subjective Subjective No overnight, states that her pains little bit more on her right lower extremity and she has more difficulty moving her right foot and says that it feels like [id number]. Could not get the hematoma drained by IR as they felt that it was too big Objective Data Objective Data Vital Signs: Vital Signs Temp Pulse Resp BP Pulse Ox O2 Del Method 98.4 F 61 16 155/90 H 95 Room Air 12/07/22 06:30 12/07/22 06:30 12/07/22 06:30 12/07/22 06:30 12/07/22 08:05 12/07/22 08:05 Oxygen Delivery Method Room Air Weight: 190 lb 11.198 oz Body Mass Index (BMI) 29.8 Intake & Output: Intake and Output for Last 24 Hours 12/06/22 12/07/22 12/08/22 03:59 03:59 03:59 Intake Total 2500 / 2500 950 / 950 Output Total 200 / 200 Balance 2300 / 2300 950 / 950 Lab / Micro Data 12/07/22 06:05 12/07/22 06:05 Labs: Laboratory Results - last 24 hr 12/07/22 06:05: WBC 9.5, RBC 4.30, Hgb 13.0, Hct 41.9, MCV 97.4, MCH 30.2, MCHC 31.0 L, RDW Std Deviation 44.8 H, RDW Coeff of Efrain 12.4, Plt Count 232, MPV 11.6, Immature Gran % (Auto) 0.400, Neut % (Auto) 59.7, Lymph % (Auto) 26.1, Evangeline % (Auto) 11.3 H, Eos % (Auto) 2.0, Baso % (Auto) 0.5, Absolute Neuts (auto) 5.7, Absolute Lymphs (auto) 2.48, Nucleated RBC % 0, Sodium 138, Potassium 3.4 L, Chloride 103, Carbon Dioxide 33.0 H, Anion Gap 2 L, BUN 12, Creatinine 0.68, Estim Creat Clear Calc 97.32, Est GFR (MDRD) Af Amer 118, Est GFR (MDRD) Non-Af 98, BUN/Creatinine Ratio 17.6, Glucose 119 H, Calcium 8.8 Radiography Diagnostic Testing: Radiology Impression Venous Doppler Study 12/04/22 19:52 Interpretation Summary The right common femoral vein, femoral vein, posterior tibial vein, and peroneal vein are patent and compressible, with no evidence of deep vein thrombosis. The right common femoral vein and femoral vein are competent. The right great saphenous vein appears patent and compressible segmentally. The right popliteal vein and tibio-peroneal trunk could not be visualized due to swelling and pain inhibition. Clinical correlation is advised. Recommend an alternative imaging modality if clinically warranted. Ordering Physician: Nadege Louis Referring Physician: OTD Performed By: Karis Mistry, PHIL, RVT Physical Exam Narrative General: Alert, Oriented x3, Cooperative, No apparent distress HEENT: Atraumatic, PERRLA, EOMI, Normocephalic Oral: Moist Mucosa Neck: Supple, No JVD Lungs: Diminished, Normal air movement, No rhonchi, No wheeze, No rales Cardiovascular: Regular rate, Regular Rhythm, Normal S1, Normal S2, No murmurs Abdomen: Soft, Non Tender, Non-Distended, No Hepato-splenomegaly Extremities: Right lower extremity edema, less dorsiflexion of the ankle compared to yesterday, pulses intact Skin: No rashes, No breakdown Musculoskeletal: No Tenderness to Palpation of Joints or Extremities Neurological: Motor Exam 5/5 strength throughout, states that she has [id number] in her right lower extremity Psych/Mental Status: Normal Affect, Appropriate Assessment & Plan Assessment/Plan (1) Acute leg pain: QUALIFIERS: Laterality: right Qualified Code(s): M79.604 - Pain in right leg (2) DVT (deep venous thrombosis): QUALIFIERS: DVT location: lower extremity Chronicity: acute Laterality: right PLAN: Plan 1. Right lower extremity gastrocnemius hematoma ? She states that she does fall on occasion at work but does not recall any significant direct trauma to the leg ? She was on therapeutic Lovenox however this has been discontinued as the CT scan was read as a hematoma ? Venous duplex was negative for DVT ? Unable to get her hematoma drained by IR as they felt it was too big therefore we will consult orthopedic surgery for evaluation and possible surgical evacuation of the hematoma given the slight progression in her symptoms 2. HTN ? When she came in systolics were in the 190s and she was started on lisinopril, she travels 12 months out of the year so she does not have a PCP so she does not have any medical history ? We will continue to monitor and make adjustments as necessary 3. Nicotine dependence: Smokes at least 1 to 1.5 packs daily. Counseled to quit. Nicotine patch 21 mg daily. DVT: Ambulation Charges/Coding Visit Charges Inpatient E&M: 57221 Subs Hosp L2
--- NOTE | 2022-12-07 15:50 | CASEMGMT ---
Social Work To patient's room to see for self pay status, however patient not in room, off unit for a procedure. Social work to follow and attempt to see patient as able at a later time. -DEE Menjivar
[2022-12-07 17:58] VITALS: BP 135/84; PULSE 68; RESP 18; TEMP 37; O2SAT 97
--- NOTE | 2022-12-07 18:34 | NURSING ---
pt very anxious and painful when BP was taken - meds given. will recheck
[2022-12-08] MEDS: Acetaminophen 325 MG Tablet 650 MG PO ×3 (03:07→15:47)
[2022-12-08] MEDS: oxyCODONE 5 MG Tablet PO ×4 (03:08→21:05)
[2022-12-08 04:00] VITALS: BP 136/92; PULSE 67; RESP 18; TEMP 36.9; O2SAT 97
[2022-12-08] MEDS: Morphine 2 MG/ML Syringe IV ×4 (04:10→22:39)
[2022-12-08] MEDS: 0.9% Saline Lock 10 ML Syringe IV ×5 (04:11→21:08)
[2022-12-08 06:35] LABS: Absolute Lymphocyte Count 1.71 X10^3/uL (0.83-4.51); Basophil# 0.03 X10^3/uL; Basophil% 0.3 % (0-1); Eosinophil# 0.16 X10^3/uL; Eosinophils% 1.8 % (0-5); Hematocrit 37.8 % (37-47); Hemoglobin 11.9 g/dL (12.0-15.0); Lymphocyte # 1.71 X10^3/ul (0.83-4.51); Lymphocyte % 19.3 % (19-41); Mean Corp Hgb Conc 31.5 g/dL (32-36); Mean Corpuscular Hgb 30.1 pg (27.0-32.0); Mean Corpuscular Volume 95.7 fL (81-99); Mean Platelet Vol. 10.9 fl (6.2-12.0); Monocyte# 0.98 X10^3/uL; NRBC Flagged by Analyzer 0 % (0-5); Neutrophil # 5.97 X10^3/uL (2.7-7.7); Neutrophil % 67.3 % (47-70); Platelet Count 246 K/mm3 (150-450); RBC Distribution Width CV 12.4 % (11.6-14.6); RBC Distribution Width SD 43.8 fl (35.1-43.9); Red Blood Count 3.95 M/mm3 (4.2-5.4); White Blood Count 8.9 K/mm3 (4.4-11.0)
[2022-12-08 07:04] LABS: Anion Gap 2 (5-15); BUN 13 mg/dL (7-18); BUN/Creat Ratio 21.2 RATIO (10-20); Calcium,Total 8.6 mg/dL (8.5-10.1); Chloride 104 mmol/L (98-107); Creatinine, Serum 0.61 mg/dL (0.55-1.02); EST Glomerular Filtration Rate 110 mL/min (>60); Est Glom Filt Rate - Afr Amer 133 mL/min (>60); Estimated Creatinine Clearance 108.49 ml/min; Glucose 129 mg/dL (74-106); Potassium 3.4 mmol/L (3.5-5.1); Sodium Level 140 mmol/L (136-145)
[2022-12-08] MEDS: Ibuprofen 600 MG Tablet PO ×3 (07:10→17:02)
--- NOTE | 2022-12-08 07:36 | PN.ORTHO_ITS ---
Subjective Subjective Patient resting comfortably upon entering the room I did awaken her and she states she is still having quite a bit of pain. No fevers or chills she is able to wiggle her toes slightly more today. Still most of her pain is in the posterior medial upper calf. Objective Data Objective Data Vital Signs: Vital Signs Temp Pulse Resp BP Pulse Ox O2 Del Method 98.5 F 67 18 136/92 H 97 Room Air 12/08/22 04:00 12/08/22 04:00 12/08/22 04:00 12/08/22 04:00 12/08/22 04:00 12/08/22 04:00 Oxygen Delivery Method Room Air Weight: 190 lb 11.198 oz Body Mass Index (BMI) 29.8 Intake & Output: Intake and Output for Last 24 Hours 12/06/22 12/07/22 12/08/22 23:59 23:59 23:59 Intake Total 950 / 950 Balance 950 / 950 Lab / Micro Data 12/08/22 06:15 12/08/22 06:15 Labs: Laboratory Results - last 24 hr 12/08/22 06:15: WBC 8.9, RBC 3.95 L, Hgb 11.9 L, Hct 37.8, MCV 95.7, MCH 30.1, MCHC 31.5 L, RDW Std Deviation 43.8, RDW Coeff of Efrain 12.4, Plt Count 246, MPV 10.9, Immature Gran % (Auto) 0.300, Neut % (Auto) 67.3, Lymph % (Auto) 19.3, Edmunds % (Auto) 11.0 H, Eos % (Auto) 1.8, Baso % (Auto) 0.3, Absolute Neuts (auto) 6.0, Absolute Lymphs (auto) 1.71, Nucleated RBC % 0, Sodium 140, Potassium 3.4 L , Chloride 104, Carbon Dioxide 34.0 H, Anion Gap 2 L, BUN 13, Creatinine 0.61, Estim Creat Clear Calc 108.49, Est GFR (MDRD) Af Amer 133, Est GFR (MDRD) Non-Af 110, BUN/Creatinine Ratio 21.2 H, Glucose 129 H, Calcium 8.6 Radiography Diagnostic Testing: Radiology Impression Lower Extremity MRI 12/07/22 10:55 IMPRESSION: Grossly stable appearance of the medial gastrocnemius intramuscular hematoma. Electronically Signed: Art Alamo MD at 17:07 EDT , Physical Exam Const alert, oriented x3 and no apparent distress General Appearance: cooperative Orientation / Consciousness: awake, oriented to person, oriented to place and oriented to time Extremity Extremity Narrative: Right lower extremity is swollen there is no erythema, he does have a joint effusion of the knee she is exquisitely tender to palpation although her compartments in her thigh posterior anterior and lateral leg are soft she is able to slightly wiggle her toes but is limited secondary to pain in her calf she has palpable pedal pulses. There is no ecchymosis. She has brisk capillary refill. Assessment & Plan Assessment/Plan (1) Hematoma of right lower leg: (2) Effusion of right knee joint: PLAN: Plan Aspirated patient's right knee today under sterile technique with alcohol and Betadine from a superior lateral position. Aspirated 27 cc of blood-tinged synovial fluid this was sent for analysis however I do not really have much concern for infection here as does not have the visual appearance of infection , I also sent for crystal analysis. MRI reviewed demonstrating isolated hematoma of the right medial gastroc without underlying mass , plan to proceed with evacuation of hematoma tomorrow 12/09/2022 in the OR.
[2022-12-08 08:26] VITALS: PULSE 73; RESP 18; TEMP 36.6; O2SAT 96
--- NOTE | 2022-12-08 08:29 | NURSING ---
unable to get BP, as pt states she is too worked up, stressed and painful for her BP to be taken. pt states i dont feel like answering many questions at all. I have a lot going on this morning.
[2022-12-08 08:40] LABS: Pathologist Comment May follow
[2022-12-08] MEDS: Lisinopril 10 MG Tablet PO (08:46)
[2022-12-08] MEDS: Senna Tablet 2 TABLET PO (08:46)
[2022-12-08 09:03] VITALS: O2SAT 94
[2022-12-08] MEDS: LORazepam 2 MG/ML Syringe 0.5 MG IV (09:36)
--- NOTE | 2022-12-08 09:49 | PN.HOSP_ITS ---
Subjective Subjective No issues overnight, MRI confirmed hematoma Objective Data Objective Data Vital Signs: Vital Signs Temp Pulse Resp BP Pulse Ox O2 Del Method 97.8 F 73 18 136/92 H 94 Room Air 12/08/22 08:26 12/08/22 08:26 12/08/22 08:26 12/08/22 04:00 12/08/22 09:03 12/08/22 09:03 Oxygen Delivery Method Room Air Weight: 190 lb 11.198 oz Body Mass Index (BMI) 29.8 Intake & Output: Intake and Output for Last 24 Hours 12/07/22 12/08/22 12/09/22 03:59 03:59 03:59 Intake Total 950 / 950 Balance 950 / 950 Lab / Micro Data 12/08/22 06:15 12/08/22 06:15 Labs: Laboratory Results - last 24 hr 12/08/22 06:15: WBC 8.9, RBC 3.95 L, Hgb 11.9 L, Hct 37.8, MCV 95.7, MCH 30.1, MCHC 31.5 L, RDW Std Deviation 43.8, RDW Coeff of Efrain 12.4, Plt Count 246, MPV 10.9, Immature Gran % (Auto) 0.300, Neut % (Auto) 67.3, Lymph % (Auto) 19.3, Duchesne % (Auto) 11.0 H, Eos % (Auto) 1.8, Baso % (Auto) 0.3, Absolute Neuts (auto) 6.0, Absolute Lymphs (auto) 1.71, Nucleated RBC % 0, Sodium 140, Potassium 3.4 L , Chloride 104, Carbon Dioxide 34.0 H, Anion Gap 2 L, BUN 13, Creatinine 0.61, Estim Creat Clear Calc 108.49, Est GFR (MDRD) Af Amer 133, Est GFR (MDRD) Non-Af 110, BUN/Creatinine Ratio 21.2 H, Glucose 129 H, Calcium 8.6 12/08/22 : Fluid Source Cancelled, Fluid Color Cancelled, Fluid Appearance Cancelled, Fluid WBC Cancelled, Fluid RBC Cancelled, Fluid Tot Cell Count Cancelled, Fld Polynuclear WBCs # Cancelled, Fld Polynuclear WBCs % Cancelled, Fluid Mononuclear WBCs Cancelled, Fld Mononuclear WBCs % Cancelled, Fluid Neutrophils Cancelled, Fluid Lymphocytes Cancelled, Fluid Monocytes Cancelled, Fluid Plasma Cells Cancelled, Fluid Macrophages Cancelled, Fld Mesothelial Cells Cancelled, Fluid Other Cells Cancelled, Fl Pathologist Comment Cancelled, Fluid Comment 2 Cancelled Radiography Diagnostic Testing: Radiology Impression Lower Extremity MRI 12/07/22 10:55 IMPRESSION: Grossly stable appearance of the medial gastrocnemius intramuscular hematoma. Electronically Signed: Art Alamo MD at 17:07 EDT , Physical Exam Narrative General: Alert, Oriented x3, Cooperative, No apparent distress HEENT: Atraumatic, PERRLA, EOMI, Normocephalic Oral: Moist Mucosa Neck: Supple, No JVD Lungs: Diminished, Normal air movement, No rhonchi, No wheeze, No rales Cardiovascular: Regular rate, Regular Rhythm, Normal S1, Normal S2, No murmurs Abdomen: Soft, Non Tender, Non-Distended, No Hepato-splenomegaly Extremities: Right lower extremity edema, less dorsiflexion of the ankle compared to yesterday, pulses intact Skin: No rashes, No breakdown Musculoskeletal: No Tenderness to Palpation of Joints or Extremities Neurological: Motor Exam 5/5 strength throughout, states that she has [id number] in her right lower extremity Psych/Mental Status: Normal Affect, Appropriate Assessment & Plan Assessment/Plan (1) Acute leg pain: QUALIFIERS: Laterality: right Qualified Code(s): M79.604 - Pain in right leg (2) DVT (deep venous thrombosis): QUALIFIERS: DVT location: lower extremity Chronicity: acute Laterality: right PLAN: Plan 1. Right lower extremity gastrocnemius hematoma ? She states that she does fall on occasion at work but does not recall any significant direct trauma to the leg ? She was on therapeutic Lovenox however this has been discontinued as the CT scan was read as a hematoma ? Venous duplex was negative for DVT ? MRI confirms hematoma ? Plan for operative evacuation tomorrow by orthopedic surgery 2. HTN ? When she came in systolics were in the 190s and she was started on lisinopril, she travels 12 months out of the year so she does not have a PCP so she does not have any medical history ? We will continue to monitor and make adjustments as necessary 3. Nicotine dependence: Smokes at least 1 to 1.5 packs daily. Counseled to quit. Nicotine patch 21 mg daily. DVT: Ambulation as she has a hematoma in her leg and cannot have chemoprophylaxis and given the pain in her right leg SCDs would be too painful Charges/Coding Visit Charges Inpatient E&M: 31975 Subs Hosp L2
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
[2022-12-08 12:05] LABS: RBC /Synovial Fluid 0.408 10^6/uL (0)
[2022-12-08 12:10] LABS: Lymph 18 %; Monocyte /Synovial Fluid 69 %; Neutrophil 13 % (0-25)
[2022-12-08 12:14] LABS: AUTO B FLUID DILUENT BKGD CT WBC <0.1 RBC <0.01 (W<.1,R<.01); CRYSTALS, BODY FLUID NO CRYSTALS SEEN; Source- Body Fluid SYNOVIAL
[2022-12-08 12:19] LABS: Source / Synovial Fluid RIGHT KNEE
[2022-12-08 12:21] LABS: Appearance /Synovial Fluid CLOUDY (CLEAR); Body Fluid QC Type(s) BF1Q,BF2Q; Color / Synovial Fluid RED (Pale Yellow)
[2022-12-08 12:24] VITALS: BP 120/71; PULSE 66; RESP 18; TEMP 35.6; O2SAT 97
[2022-12-08] MEDS: Nicotine Polacrilex 2 MG GUM PO (12:26)
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
[2022-12-08 20:00] VITALS: BP 121/76; RESP 16; TEMP 36.7; O2SAT 96
[2022-12-08] MEDS: Ondansetron 4 MG/2 ML Vial IV (21:08)
[2022-12-09] VITALS (13 sets, daily range): BP systolic 115–182; BP diastolic 54–132; PULSE 18–90; RESP 16–18; TEMP 35.8–37.2; O2SAT 88–99; BMI 29.7
--- NOTE | 2022-12-09 05:55 | EKG12_ITS ---
Test Reason : AM EKG Blood Pressure : / mmHG Vent. Rate : 074 BPM Atrial Rate : 074 BPM P-R Int : 150 ms QRS Dur : 076 ms QT Int : 382 ms P-R-T Axes : 063 044 060 degrees QTc Int : 424 ms Normal sinus rhythm Normal ECG No previous ECGs available Confirmed by DANE WANG, MADISON ([id number]), managing editor IVAN BECKFORD ([id number]) on 01/04/2023 1:20:14 PM Referred By: Mitchell Confirmed By:MADISON VELA MD
[2022-12-09 06:56] LABS: Anion Gap 3 (5-15); BUN 11 mg/dL (7-18); BUN/Creat Ratio 17.9 RATIO (10-20); Calcium,Total 8.7 mg/dL (8.5-10.1); Chloride 103 mmol/L (98-107); Creatinine, Serum 0.61 mg/dL (0.55-1.02); EST Glomerular Filtration Rate 110 mL/min (>60); Est Glom Filt Rate - Afr Amer 133 mL/min (>60); Estimated Creatinine Clearance 108.49 ml/min; Glucose 110 mg/dL (74-106); Potassium 3.5 mmol/L (3.5-5.1); Sodium Level 140 mmol/L (136-145)
[2022-12-09] MEDS: Cefazolin 2 GM in 0.9% Normal Saline (100mL Bag) 100 ML IV (07:43)
[2022-12-09] MEDS: Lidocaine 1% /Epi 1:100 (20ml) 20 ML Vial (07:50)
--- NOTE | 2022-12-09 08:14 | PN.HOSP_ITS ---
Subjective Subjective Doing well, no issues overnight. Plan for operative evacuation of the hematoma in her right leg today Objective Data Objective Data Vital Signs: Vital Signs Temp Pulse Resp BP Pulse Ox O2 Del Method 98.1 F 75 16 136/81 H 99 Room Air 12/09/22 04:07 12/09/22 04:07 12/09/22 04:07 12/09/22 04:07 12/09/22 04:07 12/09/22 04:07 Oxygen Delivery Method Room Air Weight: 190 lb Body Mass Index (BMI) 29.7 Lab / Micro Data 12/08/22 06:15 12/09/22 05:30 Labs: Laboratory Results - last 24 hr 12/08/22 : Fluid Source Cancelled, Fluid Color Cancelled, Fluid Appearance Cancelled, Fluid WBC Cancelled, Fluid RBC Cancelled, Fluid Tot Cell Count Cancelled, Fld Polynuclear WBCs # Cancelled, Fld Polynuclear WBCs % Cancelled, Fluid Mononuclear WBCs Cancelled, Fld Mononuclear WBCs % Cancelled, Fluid Neutrophils Cancelled, Fluid Lymphocytes Cancelled, Fluid Monocytes Cancelled, Fluid Plasma Cells Cancelled, Fluid Macrophages Cancelled, Fld Mesothelial Cells Cancelled, Fluid Other Cells Cancelled, Fluid Crystals NO CRYSTALS SEEN, Fluid Crystal Source SYNOVIAL, Fl Crystal Path Review Will follow, Fl Pathologist Comment Cancelled, Fluid Comment 2 Cancelled, Synovial Source RIGHT KNEE, Synovial Color RED, Synovial Appearance CLOUDY, Synovial WBC 1.4200 H, Synovial RBC 0.408 H, Synovial Tot Cell Ct 1.4320 H, Synov Polynuclear WBCs 0.470, Synov Mononuclear WBCs 0.950, Synovial Neutrophils 13, Synovial Lymphocytes 18, Synovial Monocytes 69, Synovial Polynuclear % 33.0, Synovial Mononuclear % 67.0, Synovial Path Comment May follow 12/09/22 05:30: Sodium 140, Potassium 3.5, Chloride 103, Carbon Dioxide 34.0 H, Anion Gap 3 L, BUN 11, Creatinine 0.61, Estim Creat Clear Calc 108.49, Est GFR (MDRD) Af Amer 133, Est GFR (MDRD) Non-Af 110, BUN/Creatinine Ratio 17.9, Glucose 110 H, Calcium 8.7 Micro: Microbiology 12/08/22 Unknown Fluid - Synovial (joint) Gram Stain - Final Physical Exam Narrative General: Alert, Oriented x3, Cooperative, No apparent distress HEENT: Atraumatic, PERRLA, EOMI, Normocephalic Oral: Moist Mucosa Neck: Supple, No JVD Lungs: Diminished, Normal air movement, No rhonchi, No wheeze, No rales Cardiovascular: Regular rate, Regular Rhythm, Normal S1, Normal S2, No murmurs Abdomen: Soft, Non Tender, Non-Distended, No Hepato-splenomegaly Extremities: Right lower extremity edema, pulses intact Skin: No rashes, No breakdown Musculoskeletal: No Tenderness to Palpation of Joints or Extremities Neurological: Motor Exam 5/5 strength throughout, states that she has [id number] in her right lower extremity Psych/Mental Status: Normal Affect, Appropriate Assessment & Plan Assessment/Plan (1) Acute leg pain: QUALIFIERS: Laterality: right Qualified Code(s): M79.604 - Pain in right leg PLAN: Plan 1. Right lower extremity gastrocnemius hematoma ? She states that she does fall on occasion at work but does not recall any significant direct trauma to the leg ? She was on therapeutic Lovenox however this has been discontinued as the CT scan was read as a hematoma ? Venous duplex was negative for DVT ? MRI confirms hematoma ? Plan for operative evacuation today by orthopedic surgery 2. HTN ? When she came in systolics were in the 190s and she was started on lisinopril, she travels 12 months out of the year so she does not have a PCP so she does not have any medical history ? Her blood pressures are intermittently elevated will add Norvasc ? We will continue to monitor and make adjustments as necessary 3. Nicotine dependence: Smokes at least 1 to 1.5 packs daily. Counseled to quit. Nicotine patch 21 mg daily. DVT: Ambulation as she has a hematoma in her leg and cannot have chem oprophylaxis and given the pain in her right leg SCDs would be too painful Charges/Coding Visit Charges Inpatient E&M: 60211 Subs Hosp L2
--- NOTE | 2022-12-09 08:33 | OP.PCM_ITS ---
Operative Report Date of Procedure: 12/09/22 Preoperative diagnosis: Right leg hematoma medial gastrocnemius intramuscular Postoperative diagnosis: Same Procedure: Open evacuation of hematoma right medial gastrocnemius muscle Anesthesia: General LMA EBL: 25 Complications: None Condition: Stable to PACU Indication for procedure: 47-year-old female patient developed insidious onset of pain in her posterior leg no known injury that caused however she has had multiple falls in the past. Initially treated with Lovenox for presumed DVT this was determined that she did not have a DVT CT scan and MRI demonstrated an isolated hematoma of the right medial gastrocnemius intramuscular patient has significant pain with inability ambulate, thorough discussion was had with the patient in regards to conservative versus surgical intervention risk benefits and alternatives were reviewed including risk of bleeding infection nerve, arter y, tissue damage, blood clot need for further surgery and continued pain. Procedure: Patient was met in the preoperative holding area once again the operative extremity was identified by both patient and physician was marked patient was met by anesthesia brought back to the operative and a wheeled cart transfer to the upper table in supine position anesthesia was started well- padded tourniquet was placed in the right upper thigh patient was prepped and draped in usual sterile fashion. A timeout was called ensure the proper patient procedure extremity being contemplated. Esmarch was used to exsanguinate the extremity and the tourniquet was inflated. A vertical incision was made through the skin in the area of the medial gastrocnemius dissection was carried down to the gastrocnemius muscle fascia electrocautery was used in the subcutaneous tissue the fascia was then opened and large hematoma was appreciated and expressed. There was no sign of any mass or infection. The muscle was viable it was checked with electrocautery and did contract, healthy color and appearance. After physical evacuation of the hematoma thorough irrigation was performed with pulse lavage. The fascia was not tight for closure therefore was determined to be appropriate to go ahead and close this with a 2-0 Vicryl followed by 2-0 Vicryl subcutaneous stitches in the subcutaneous layer followed by wendy in the skin and injection with 1% lidocaine with epinephrine was injected into the incisional area. Dressing was applied in form of Xeroform 4 x 4 ABD and Ioband. Patient tolerated procedure there is no intraoperative complications she was brought back to the PACU in stable conditions all counts were correct. Patient can be weightbearing as tolerated encourage knee ankle range of motion immediately, she should leave her dressing on for 5 days. Then may remove and begin showering daily at that point washing the incisional area with warm water and antibacterial soap and covering with a dry dressing at that point.
--- NOTE | 2022-12-09 09:36 | NURSING ---
pt arrived back to unit. a&ox3. pt laughing and chatting with visitor she identifies as father. pt asking about diet. postop check completed. denies n/t. discussed pain pt states 10/04 but states always about that.
[2022-12-09] MEDS: Acetaminophen 325 MG Tablet 650 MG PO ×2 (10:16→18:21)
[2022-12-09] MEDS: Senna Tablet 2 TABLET PO (10:16)
[2022-12-09] MEDS: Lisinopril 10 MG Tablet PO (10:16)
[2022-12-09] MEDS: oxyCODONE 5 MG Tablet PO ×4 (10:16→22:23)
[2022-12-09] MEDS: amLODIPine 10 MG Tablet PO (10:16)
[2022-12-09] MEDS: Ibuprofen 600 MG Tablet PO ×2 (10:17→17:04)
[2022-12-09 10:31] LABS: Pathologist Review Reviewed
[2022-12-09] MEDS: 0.9% Saline Lock 10 ML Syringe IV ×4 (13:36→23:59)
[2022-12-09] MEDS: Cefazolin 1 GM/50 ML BAG IV ×2 (13:36→21:05)
[2022-12-09] MEDS: 0.9% Normal Saline (250mL Bag) 250 ML 15 ML IV (13:36)
[2022-12-09 14:09] LABS: GLUCOSE, SYNOVIAL FLUID 124 mg/dL (.); PROTEIN, SYNOVIAL FLUID 3.6 g/dL (.)
[2022-12-09] MEDS: hydrALAZINE 20 MG/ML Vial 10 MG IV ×2 (17:06→23:58)
[2022-12-10] MEDS: Ibuprofen 600 MG Tablet PO ×2 (00:30→06:10)
[2022-12-10 01:28] VITALS: BP 164/88; PULSE 96; RESP 18; TEMP 36.6; O2SAT 97
[2022-12-10] MEDS: hydrOXYzine 10 MG Tablet PO (02:03)
--- NOTE | 2022-12-10 02:04 | NURSING ---
Pt very rude to nursing staff threatening to leave AMA. Paper work given but pt then just back into bed. Pt said she has been waiting for 4hrs for help. entertainment usher answered the call in 3 min.
[2022-12-10] MEDS: oxyCODONE 5 MG Tablet PO (02:35)
[2022-12-10 05:28] VITALS: BP 136/73; PULSE 73; RESP 16; TEMP 36.8; O2SAT 97
[2022-12-10] MEDS: Cefazolin 1 GM/50 ML BAG IV (06:10)
[2022-12-10] MEDS: 0.9% Saline Lock 10 ML Syringe IV (06:10)
[2022-12-10 07:29] LABS: Absolute Lymphocyte Count 1.76 X10^3/uL (0.83-4.51); Basophil# 0.03 X10^3/uL; Basophil% 0.2 % (0-1); Eosinophil# 0.01 X10^3/uL; Eosinophils% 0.1 % (0-5); Hematocrit 38.4 % (37-47); Lymphocyte # 1.76 X10^3/ul (0.83-4.51); Lymphocyte % 10.9 % (19-41); Mean Corp Hgb Conc 31.3 g/dL (32-36); Mean Corpuscular Hgb 30.2 pg (27.0-32.0); Mean Corpuscular Volume 96.7 fL (81-99); Mean Platelet Vol. 11.6 fl (6.2-12.0); Monocyte# 1.21 X10^3/uL; Monocyte% 7.5 % (0-10); NRBC Flagged by Analyzer 0 % (0-5); Neutrophil # 12.99 X10^3/uL (2.7-7.7); Neutrophil % 80.7 % (47-70); Platelet Count 305 K/mm3 (150-450); RBC Distribution Width CV 12.4 % (11.6-14.6); RBC Distribution Width SD 44.5 fl (35.1-43.9); Red Blood Count 3.97 M/mm3 (4.2-5.4); White Blood Count 16.1 K/mm3 (4.4-11.0)
[2022-12-10 08:18] LABS: Anion Gap 1 (5-15); BUN 15 mg/dL (7-18); BUN/Creat Ratio 18.2 RATIO (10-20); Calcium,Total 9.1 mg/dL (8.5-10.1); Chloride 102 mmol/L (98-107); Creatinine, Serum 0.82 mg/dL (0.55-1.02); EST Glomerular Filtration Rate 79 mL/min (>60); Est Glom Filt Rate - Afr Amer 95 mL/min (>60); Glucose 188 mg/dL (74-106); Potassium 4.1 mmol/L (3.5-5.1); Sodium Level 137 mmol/L (136-145)
--- NOTE | 2022-12-10 08:34 | DCINST_ITS ---
Discharge Instructions Diet Discharge Diet: No restrictions Activity Discharge Activity: Return to Normal Activity May shower in (days): 5 Weight Bearing Status: Weight bearing as tolerated Dressing / Incision Call your doctor if your incision/area has: Continuous Slow Oozing and Increased Redness Call your doctor if you observe: Fever of 101 or Higher, Shortness of breath, Dizziness, Fainting spells, Swelling in the ankles, Chest pain and Increased palpitations (irregular heartbeat) Remove Dressing in: 5 days Follow Up Care Test Results: Test results from this visit will be discussed in further detail at your follow- up appointment, if applicable. Discharge Plan Admission Admit Date/Time: 12/04/22 19:47 Attending Provider: Yogi Medrano Consulting Providers: Nadege Louis; Sinan Edwards; Delfin Jones Discharge Orders/Prescriptions Prescriptions: New amlodipine 10 mg Tablet 10 mg PO DAILY 30 Days Qty: 30 3RF lisinopril 10 mg Tablet 10 mg PO DAILY 30 Days Qty: 30 3RF hydrocodone-acetaminophen 5-325 mg tablet 1 tab PO Q8H PRN (Reason: pain) 3 Days Qty: 10 0RF Referrals / Follow Up: [facility] Doctor,Out of [Non-Staff] - Disposition Disposition (needs filled in before D/C Order can be placed): Home, Self Care
--- NOTE | 2022-12-10 09:08 | CASEMGMT ---
[place] CM into pt room with pt nurse. Pt anxious to leave the hospital. Gave pt choice of having FWW delivered to room or taking the rx to pharmacy of her choosing. Pt would like to have rx and go to pharmacy of choice. Pt denies any further needs. She is aware of wound orders. Pt ready for dc.
--- NOTE | 2022-12-10 09:23 | PCM.DC.SUM ---
Providers Date of Admission: 12/04/22 Consultations 12/07/22 08:39 Consult: Orthopedics Routine Consulting Provider: Delfin Jones Reason for Consult: right gastroc hematoma with distal numbness EMERGENT Consult: No MD Notified: Yes Date Notified: 12/07/22 Time Notified: 08:39 Method of Notification: Verbal Reason For Visit: PROBABLE DVT OF LLE Diagnosis Discharge Diagnosis (1) Acute leg pain: Status: Acute Code(s): M79.606 - Pain in leg, unspecified Qualifiers: Laterality: right Qualified Code(s): M79.604 - Pain in right leg Medications at Discharge Home Medications amlodipine 10 mg tablet 10 mg PO DAILY 30 days #30 tabs 12/10/22 hydrocodone-acetaminophen 5-325mg 5mg-325mg 1 tab PO Q8H PRN pain 3 days #10 tabs 12/10/22 lisinopril 10 mg tablet 10 mg PO DAILY 30 days #30 tabs 12/10/22 Hospital Course Operations - (Hematoma evacuation) Procedures None Summary of Care Provided Minutes Spent on Discharge: 36 Hospital Course: Per HPI: KATIE SEQUEIRA, is a 47 F with a PMH as outlined who presents via the ED with a complaint of RLE pain and swelling for about a week. She works for the [employer] and travels from [facility] to [facility]. HEr most recent travel was for about 4 hours. She started having some cramping of her right calf a week ago. She thought maybe she had pulled a muscle, but the symptoms persisted and he started having extensive swelling of her right lower extremity. Swelling extended to up above the knee to the mid thigh region. She notices that her leg was also very tense and very painful so she came into the ED. She denied any chest pain though she says she also was short of breath because she smoked and had not noticed any worsening of it. She never had any blood clot in her leg or her lungs. Review of systems otherwise negative. Vitals in the ED were BP of 198/108 with temperature of 98.3 Fahrenheit and respirate rate of 16. Showed saturating 98% on room air. CBC showed WBC of 14.9 with hemoglobin of 14.2 and platelets of 260. Chemistry was significant for potassium of 3.4. Duplex could not be done in the ED this evening. She has been admitted to be managed for presumptive DVT of the right lower extremity as well as markedly elevated BP, likely potentiated by pain. Hospital Course: 1. Right lower extremity gastrocnemius hematoma?47-year-old female presents to the hospital initially with right lower extremity swelling there is concern for DVT however since it was the weekend there is a delay in being able to get a lower extremity venous Doppler so she was started empirically on therapeutic anticoagulation. On Tuesday she had a CT scan that demonstrated a hematoma and the Doppler was performed that did not show a DVT therefore her therapeutic Lovenox was discontinued. She was monitored for compartment syndrome as she was having pain. Orthopedic surgery was ultimately consulted and an MRI was obtained as she had a hematoma in the absence of trauma and so the MRI was used to rule out other diagnoses however the MRI also confirmed hematoma so she was taken to the OR on 12/09/2022 for evacuation. She tolerated the procedure well however today she is insistent on going home. She did express understanding of the risk and benefits of going home and I felt that she could benefit from another day in the in the hospital to make sure that everything heals okay however she is adamant about going home. She will be discharged with new blood pressure medications as she was found to be hypertensive while here and it was discussed with her that she should follow-up with a local ER as she travels with the [facility] to monitor wounds and to assess response to blood pressure medications. It was also discussed with her what to look for and the signs and symptoms of infection so that which she could present to an ER for treatment if necessary. 2. Hypertension?this is a new diagnosis for her if she does not have a PCP or take any chronic medications. She was initially started on lisinopril and her kidney functions tolerated this however her blood pressures are still elevated in the 140s and 150s therefore she was also added to Norvasc 10 mg. Physical Exam Narrative General: Alert, Oriented x3, Cooperative, No apparent distress HEENT: Atraumatic, PERRLA, EOMI, Normocephalic Oral: Moist Mucosa Neck: Supple, No JVD Lungs: Diminished, Normal air movement, No rhonchi, No wheeze, No rales Cardiovascular: Regular rate, Regular Rhythm, Normal S1, Normal S2, No murmurs Abdomen: Soft, Non Tender, Non-Distended, No Hepato-splenomegaly Extremities: Right lower extremity edema, pulses intact Skin: Dressing CDI Musculoskeletal: No Tenderness to Palpation of Joints or Extremities Neurological: Motor Exam 5/5 strength throughout, states that she has [id number] in her right lower extremity Psych/Mental Status: Normal Affect, Appropriate Weight / BMI Weight Weight: 190 lb Body Mass Index (BMI) 29.7 ABG / Lab / Microbiology Data 12/10/22 06:30 12/10/22 06:30 Laboratory: Laboratory Results - last 24 hr 12/08/22 07:00: Synovial Glucose 124 12/08/22 : Fl Crystal Path Review Reviewed 12/10/22 06:30: WBC 16.1 H, RBC 3.97 L, Hgb 12.0, Hct 38.4, MCV 96.7, MCH 30.2, MCHC 31.3 L, RDW Std Deviation 44.5 H, RDW Coeff of Efrain 12.4, Plt Count 305, MPV 11.6, Immature Gran % (Auto) 0.600, Neut % (Auto) 80.7 H, Lymph % (Auto) 10.9 L, [place] % (Auto) 7.5, Eos % (Auto) 0.1, Baso % (Auto) 0.2, Absolute Neuts (auto) 13.0 H, Absolute Lymphs (auto) 1.76, Nucleated RBC % 0, Sodium 137, Potassium 4.1, Chloride 102, Carbon Dioxide 34.0 H, Anion Gap 1 L, BUN 15, Creatinine 0.82, Estim Creat Clear Calc 80.70, Est GFR (MDRD) Af Amer 95, Est GFR (MDRD) Non-Af 79, BUN/Creatinine Ratio 18.2, Glucose 188 H, Calcium 9.1 Microbiology: Microbiology 12/08/22 Unknown Fluid - Synovial (joint) Gram Stain - Final D/C Instructions Discharge Diet: No restrictions May shower in (days): 5 Weight Bearing Status: Weight bearing as tolerated Call your doctor if your incision/area has: Continuous Slow Oozing and Increased Redness Call your doctor if you observe: Fever of 101 or Higher, Shortness of breath, Dizziness, Fainting spells, Swelling in the ankles, Chest pain and Increased palpitations (irregular heartbeat) Meaningful Use Info Meaningful Use Diagnoses (Choose all that apply): None applicable Discharge Plan Admission Admit Date/Time: 12/04/22 19:47 Attending Provider: Yogi Medrano Consulting Providers: Nadege Louis; Sinan Edwards; Delfin Jones Instructions Additional Instructions / Restrictions: Patient will be leaving out of state, would recommend following up with an ER at wherever you end up to examine the wound on your leg in 5 to 7 days. Would also recommend establishing with physician to monitor your renal function as you have been started on blood pressure medications that can affect your kidneys. Also you did have a knee effusion however you requested to be discharged prior to cultures being finalized so if you do develop increased pain and redness in your knee as well as fevers and chills, I would recommend going to the nearest ER. Discharge Orders/Prescriptions Prescriptions: New amlodipine 10 mg Tablet 10 mg PO DAILY 30 Days Qty: 30 3RF lisinopril 10 mg Tablet 10 mg PO DAILY 30 Days Qty: 30 3RF hydrocodone-acetaminophen 5-325 mg tablet 1 tab PO Q8H PRN (Reason: pain) 3 Days Qty: 10 0RF Referrals / Follow Up: [facility] Doctor,Out of [Non-Staff] - Disposition Disposition (needs filled in before D/C Order can be placed): Home, Self Care Charges/Coding Visit Charges Inpatient E&M: 19906 Disch Hosp >30min
== END 2022-12-10 09:15 | disposition home or self-care (01) | DRG 502 ==
LOC: ED 19:31 → MS3 12-05 01:57
PROVIDERS: Anesthesiology; Internal Medicine; Orthopaedic Surgery; Admitting Provider Student in an Organized Health Care Education/Training Program; Emergency Provider Emergency Medicine; Visit Provider Family Medicine
PROC: 0KCS0ZZ Extirpation of Matter from Right Lower Leg Muscle, Open Approach (ICD-10-PCS; principal; 2022-12-09 07:20)
DX: M79.81 Nontraumatic hematoma of soft tissue (principal); F17.210 Nicotine dependence, cigarettes, uncomplicated; I10 Essential (primary) hypertension; M79.604 Pain in right leg; M25.461 Effusion, right knee
CPT/HCPCS: 36415; 71275; 73700; 73720; 80048; 80053; 82945; 84157; 85025; 85610; 87070; 87075; 87205; 89050; 89051; 89060; 93005; 93970; 97162; 97166; 99285; 99406; A9575; J7030; J7050; J7120; Q9967; A4216; J2405